=== PATIENT | male | born 1945 | race Caucasian/White ===

== ENCOUNTER 2023-05-28 12:58 | Inpatient (IN) | payer OTHER ==
[~2023-05-28] VITALS: Ht 172.7 cm; Wt 88.0 kg
[2023-05-28] MEDS ORDERED: ATACAND32 MG PO (13:22)
[2023-05-28] MEDS ORDERED: VERELAN PM100 MG PO (13:22)
[2023-05-28] MEDS ORDERED: PLAVIX75 MG PO (13:23)
[2023-05-28] MEDS ORDERED: CRESTOR10 MG PO (13:23)
[2023-05-28 14:24] LABS: HEMATOCRIT 35.5 % (39.0-48.0); HEMOGLOBIN 11.9 g/dL (13-16.00); MEAN CELL VOLUME 96.9 fL (80.0-100.00); MEAN CORPUSCULAR HEMOGLOBIN 32.5 pg (27.00-32.0); MEAN CORPUSCULAR HGB CONC 33.6 g/dl (32.0-36.0); PLATELET COUNT 240 K/uL (150-450); RED BLOOD COUNT 3.66 M/uL (4.00-6.00); RED CELL DISTRIBUTION WIDTH 15.9 % (11.5-14.5)
[2023-05-28 14:33] LABS: CALCIUM 9.3 mg/dL (8.5-10.1); CREATININE SERUM 2.45 mg/dL (0.70-1.30); GFR 25.76; POTASSIUM 4.4 mEq/L (3.5-5.1)
[2023-05-28 15:32] LABS: PH,URINE 5.5 (5.0-8.0); URINE APPEARANCE Clear; URINE BILIRRUBIN Negative (NEGATIVE); URINE BLOOD Small; URINE COLOR Dark Yellow; URINE GLUCOSE Negative (NEGATIVE); URINE LEUKOCYTE Negative; URINE NITRATE Negative
[2023-05-28 15:33] LABS: URINE BACTERIA 94.4 uL (0.0-1933); URINE EPITHELIAL CELLS 36.3 uL (0.0-38.8); URINE RBC 9.6 uL (0.0-20.8); URINE WBC 5.5 uL (0.0-23.2)
[2023-05-28 15:58] LABS: URINE PROTEIN 300 (NEGATIVE)
[2023-05-28 18:36] LABS: ALBUMIN 3.4 gm/dL (3.4-5.0); BILIRUBIN TOTAL 3.07 mg/dL (0.3-1.2); BILIRUBIN,CONJUGATED 2.57 mg/dL (0.0-0.2); BILIRUBIN,UNCONJUGATED 0.5 mg/dL (0.0-0.6); TOTAL PROTEIN 7.2 gm/dL (6.4-8.2)
[2023-05-28 20:08] LABS: INR 1.01; PARTIAL THROMBOPLASTIN TIME 25.8 SECONDS (22.0-34.0); PROTHROMBIN TIME 10.6 SECONDS (9.0-11.5)
[2023-05-28 20:11] LABS: MAGNESIUM 2.1 mg/dL (1.8-2.4)
[2023-05-28 20:41] LABS: ABG PH 7.395 (7.35-7.45); ABG PO2 79.2 mmHg (80-100); ABG pCO2 31.5 mmHg (35-45); SaO2 95.3 %
[2023-05-28 20:42] LABS: BASE EXCESS -4.3 mmol/l; BICARBONATE 18.8 mmol/l (23-25); Tco2 19.8 mmol/l; allen test SATISFACTORY; o2 21 %; puncture site RADIAL RIGHT
[2023-05-29 07:49] LABS: ALBUMIN 2.7 gm/dL (3.4-5.0); BILIRUBIN TOTAL 2.45 mg/dL (0.3-1.2); BILIRUBIN,CONJUGATED 1.64 mg/dL (0.0-0.2); BILIRUBIN,UNCONJUGATED 0.81 mg/dL (0.0-0.6); CHOL HDL RATIO 1.7 (0-5.0); TOTAL PROTEIN 5.3 gm/dL (6.4-8.2)
[2023-05-30 08:30] LABS: ALBUMIN 2.5 gm/dL (3.4-5.0); BILIRUBIN TOTAL 3.82 mg/dL (0.3-1.2); CALCIUM 8.6 mg/dL (8.5-10.1); CREATININE SERUM 2.21 mg/dL (0.70-1.30); GFR 29.02; GLOBULINA 2.4 G/DL (2.4-3.5); POTASSIUM 4.45 mEq/L (3.5-5.1); TOTAL PROTEIN 4.9 gm/dL (6.4-8.2)
[2023-05-30 08:42] LABS: HEMATOCRIT 29.6 % (39.0-48.0); HEMOGLOBIN 9.8 g/dL (13-16.00); MEAN CELL VOLUME 96.7 fL (80.0-100.00); MEAN CORPUSCULAR HGB CONC 33.1 g/dl (32.0-36.0); PLATELET COUNT 169 K/uL (150-450); RED BLOOD COUNT 3.06 M/uL (4.00-6.00); RED CELL DISTRIBUTION WIDTH 15.8 % (11.5-14.5)
[2023-05-31 07:50] LABS: ALBUMIN 2.5 gm/dL (3.4-5.0); BILIRUBIN TOTAL 4.39 mg/dL (0.3-1.2); CALCIUM 8.7 mg/dL (8.5-10.1); CREATININE SERUM 2.11 mg/dL (0.70-1.30); GFR 30.61; GLOBULINA 2.3 G/DL (2.4-3.5); POTASSIUM 4.46 mEq/L (3.5-5.1); TOTAL PROTEIN 4.8 gm/dL (6.4-8.2)
[2023-06-01 07:21] LABS: ALBUMIN 2.3 gm/dL (3.4-5.0); BILIRUBIN,CONJUGATED 3.41 mg/dL (0.0-0.2); BILIRUBIN,UNCONJUGATED 0.97 mg/dL (0.0-0.6); TOTAL PROTEIN 4.9 gm/dL (6.4-8.2)
[2023-06-01 07:41] LABS: BILIRUBIN TOTAL 4.38 mg/dL (0.3-1.2)
[2023-06-02 07:31] LABS: ALBUMIN 2.2 gm/dL (3.4-5.0); BILIRUBIN TOTAL 4.28 mg/dL (0.3-1.2); BILIRUBIN,CONJUGATED 3.48 mg/dL (0.0-0.2); BILIRUBIN,UNCONJUGATED 0.8 mg/dL (0.0-0.6); TOTAL PROTEIN 4.5 gm/dL (6.4-8.2)
[2023-06-02 12:11] LABS: hav igm Negative (Negative); hcv Non Reactive (Non Reactive); hep b c Negative (Negative)
[2023-06-03 07:18] LABS: ALBUMIN 2.2 gm/dL (3.4-5.0); BILIRUBIN TOTAL 4.48 mg/dL (0.3-1.2); BILIRUBIN,CONJUGATED 3.88 mg/dL (0.0-0.2); BILIRUBIN,UNCONJUGATED 0.6 mg/dL (0.0-0.6); TOTAL PROTEIN 4.7 gm/dL (6.4-8.2)
[2023-06-04 08:09] LABS: ALBUMIN 2.5 gm/dL (3.4-5.0); BILIRUBIN TOTAL 4.81 mg/dL (0.3-1.2); BILIRUBIN,CONJUGATED 3.98 mg/dL (0.0-0.2); BILIRUBIN,UNCONJUGATED 0.83 mg/dL (0.0-0.6); TOTAL PROTEIN 5.2 gm/dL (6.4-8.2)
[2023-06-04 09:35] LABS: AMYLASE 162 U/L (25-115)
[2023-06-04 09:37] LABS: LIPASE 505 U/L (13-75)
[2023-06-05 07:01] LABS: ALBUMIN 2.2 gm/dL (3.4-5.0); BILIRUBIN TOTAL 4.97 mg/dL (0.3-1.2); CALCIUM 7.7 mg/dL (8.5-10.1); CREATININE SERUM 1.74 mg/dL (0.70-1.30); GFR 38.24; GLOBULINA 2.3 G/DL (2.4-3.5); POTASSIUM 3.6 mEq/L (3.5-5.1); TOTAL PROTEIN 4.5 gm/dL (6.4-8.2)
== END 2023-06-06 13:26 | disposition designated cancer center or children's hospital (05) | DRG 439 ==
LOC: ER 12:59 → MEDJ 20:12 → MEDI 20:12
PROVIDERS: Emergency Medicine; General Practice; Internal Medicine; Internal Medicine Infectious Disease; Internal Medicine Nephrology; Specialist; ADMIT Internal Medicine; ATTEND Internal Medicine
PROC: BW21ZZZ Computerized Tomography (CT Scan) of Abdomen and Pelvis (ICD-10-PCS; principal; 2023-05-28)
PROC: BW40ZZZ Ultrasonography of Abdomen (ICD-10-PCS; 2023-05-28)
PROC: BF37ZZZ Magnetic Resonance Imaging (MRI) of Pancreas (ICD-10-PCS; 2023-05-28)
PROC: BF37ZZZ Magnetic Resonance Imaging (MRI) of Pancreas (ICD-10-PCS; 2023-06-04)
DX: K85.80 Other acute pancreatitis without necrosis or infection (principal); K56.0 Paralytic ileus; I12.9 Hypertensive chronic kidney disease with stage 1 through stage 4 chronic kidney disease, or unspecified chronic kidney disease; N18.9 Chronic kidney disease, unspecified; Z85.46 Personal history of malignant neoplasm of prostate

== ENCOUNTER 2023-08-12 07:03 | Outpatient (CLI) | payer OTHER ==
[~2023-08-12 07:03] MED LIST: ATACAND32 MG PO; CRESTOR10 MG PO; PLAVIX75 MG PO; VERELAN PM100 MG PO
[2023-08-12 07:31] LABS: HEMATOCRIT 31.8 % (39.0-48.0); HEMOGLOBIN 10.9 g/dL (13-16.00); MEAN CELL VOLUME 90.8 fL (80.0-100.00); MEAN CORPUSCULAR HEMOGLOBIN 31.2 pg (27.00-32.0); MEAN CORPUSCULAR HGB CONC 34.3 g/dl (32.0-36.0); PLATELET COUNT 360 K/uL (150-450); RED BLOOD COUNT 3.51 M/uL (4.00-6.00)
[2023-08-12 07:56] LABS: INR 1.07; PARTIAL THROMBOPLASTIN TIME 27.5 SECONDS (22.0-34.0); PROTHROMBIN TIME 11.2 SECONDS (9.0-11.5)
[2023-08-12 08:03] LABS: ALBUMIN 2.6 gm/dL (3.4-5.0); BILIRUBIN TOTAL 6.16 mg/dL (0.3-1.2); CALCIUM 9.1 mg/dL (8.5-10.1); TOTAL PROTEIN 6.6 gm/dL (6.4-8.2)
[2023-08-12 09:27] LABS: GFR 14.06
[2023-08-12 09:31] LABS: CREATININE SERUM 4.14 mg/dL (0.70-1.30)
[2023-08-12 09:32] LABS: POTASSIUM 2.87 mEq/L (3.5-5.1)
== END 2023-08-12 07:04 | disposition home or self-care (01) ==
LOC: LAB 07:03
PROVIDERS: ATTEND Urology
DX: C61 Malignant neoplasm of prostate (principal); C25.0 Malignant neoplasm of head of pancreas

== ENCOUNTER 2023-08-12 07:56 | Outpatient (CLI) | payer OTHER | END 2023-08-12 08:06 | disposition home or self-care (01) | LOC: TOM 07:56 | DX: C25.0 Malignant neoplasm of head of pancreas (principal) ==